=== PATIENT | female | born 1945 | race Caucasian/White ===

== ENCOUNTER 2019-03-30 11:18 | Outpatient (CLI) | payer OTHER | END 2019-03-30 12:00 | disposition home or self-care (01) | LOC: NUCLEAR 11:18 | DX: D86.9 Sarcoidosis, unspecified (principal) | CPT/HCPCS: 78802; A9556 ==

== ENCOUNTER 2019-04-01 11:39 | Outpatient (CLI) | payer OTHER | END 2019-04-01 12:30 | disposition home or self-care (01) | LOC: NUCLEAR 11:39 | DX: I87.2 Venous insufficiency (chronic) (peripheral) (principal) ==

== ENCOUNTER 2020-12-05 15:49 | Outpatient (CLI) | payer OTHER | END 2020-12-05 15:57 | disposition home or self-care (01) | LOC: RAD 15:49 | PROVIDERS: ATTEND Internal Medicine Pulmonary Disease | DX: I10 Essential (primary) hypertension (principal); J45.40 Moderate persistent asthma, uncomplicated; J98.11 Atelectasis ==

== ENCOUNTER 2020-12-14 10:52 | Outpatient (CLI) | payer OTHER | END 2020-12-14 11:03 | disposition home or self-care (01) | LOC: MRI 10:52 | PROVIDERS: ATTEND Psychiatry & Neurology Pain Medicine | DX: R10.2 Pelvic and perineal pain (principal); M25.552 Pain in left hip | CPT/HCPCS: 73721 ==